=== PATIENT | female | born 1995 | race Caucasian/White ===

== ENCOUNTER → 2017-12-30 | Outpatient (CLI) | payer BC ==
--- NOTE | 2017-12-30 11:59 | US ---
History: Fatigue Study: Ultrasound thyroid Findings: High-resolution linear array ultrasound of thyroid is performed. Right lobe measures 3.6 x 1.6 x 2 cm. The left lobe measures 3.7 x 1.9 x 1.6 cm. The isthmus measures less than 2 mm in thickne ss. There are 2 small hypoechoic areas on the right largest which measures 7 mm. Impression: Tiny right thyroid nodules. Reported By:
== END | disposition home or self-care (01) | DRG 948 ==
LOC: RAD 11:12
PROVIDERS: ATTEND Nurse Practitioner
DX: R53.83 Other fatigue (principal); E04.1 Nontoxic single thyroid nodule
CPT/HCPCS: 76536